=== PATIENT | female | born 1995 | race Caucasian/White ===

== ENCOUNTER 2017-10-16 11:20 | Emergency (ER) | payer OTHER ==
[~2017-10-16] VITALS: Ht 170.2 cm; Wt 66.7 kg
[2017-10-16 11:45] VITALS: Ht 170.2 cm; Wt 66.7 kg
[2017-10-16 13:24] LABS: BASOPHIL % 0.6 % (0-2); PLATELET COUNT 267 x10^3mcL (130-400); RED CELL DISTRIBUTION WIDTH 13.2 % (11.5-14.5)
[2017-10-16 13:50] LABS: UA SPECIFIC GRAVITY >=1.030 (1.005-1.035); microscopic required? YES; urine erythrocyte NEGATIVE (NEGATIVE)
[2017-10-16 13:51] LABS: CALCIUM 8.6 mg/dL (8.5-10.1); CARBON DIOXIDE 27.6 mmol/L (21-32); CHLORIDE SERUM 103 mmol/L (98-107); CREATININE SERUM 0.8 mg/dL (0.6-1.0); GFR1 > 60 mL/min; GLUCOSE SERUM 89 mg/dL (74-106); POTASSIUM SERUM 3.8 mmol/L (3.5-5.1); SODIUM SERUM 139 mmol/L (136-145)
[2017-10-16 13:55] LABS: ALBUMIN 3.8 g/dL (3.4-5.0); ALKALINE PHOSPHATASE 77 U/L (46-116); ALT/SGPT 23 U/L (14-59); AMYLASE 60 U/L (25-115); AST/SGOT 14 U/L (15-37); BILIRUBIN TOTAL 0.42 mg/dL (0.20-1.00); LIPASE 162 IU/L (73-393); TOTAL PROTEIN, SERUM 7.3 g/dL (6.4-8.2)
[2017-10-16 16:23] VITALS: BP 102/53
== END 2017-10-16 16:23 | disposition home or self-care (01) ==
LOC: ED 11:20
PROVIDERS: Emergency Medicine
DX: R10.84 Generalized abdominal pain (principal); R11.2 Nausea with vomiting, unspecified
CPT/HCPCS: J0500; J7030; Q9967